=== PATIENT | female | born 1975 | race Caucasian/White ===

== ENCOUNTER 2021-06-25 04:15 | Day surgery (SDC) | payer BC ==
[2021-06-24 12:46] VITALS: BMI 29.0
[2021-06-25] MEDS ORDERED: PROPOFOL 20 ML ONE (14:00)
[2021-06-25] MEDS ORDERED: MIDAZOLAM HCL 2 MG/2 ML SINGLE DOSE VIAL ONE (14:00)
[2021-06-25] MEDS ORDERED: metroNIDAZOLE 0.75% VAGINAL GEL 70 GM TUBE ONE (14:28)
[2021-06-25] MEDS ORDERED: IODINE/POTASSIUM IODIDE 5%/10% 14 ML BOTTLE NR ONE (14:38)
[2021-06-25] MEDS ORDERED: FERRIC SUBSULFATE 500 ML BOTTLE TP ONE (14:44)
[2021-06-25] MEDS ORDERED: metroNIDAZOLE 0.75% TOPICAL GEL 45 GM TUBE TP ONE (14:45)
[2021-06-25] MEDS ORDERED: ACETAMINOPHEN 325 MG TABLET (FP) PO PRN (15:17)
[2021-06-25] MEDS ORDERED: oxyCODONE HCL 5 MG TABLET PO PRN ×2 (15:17→15:22)
[2021-06-25] MEDS ORDERED: ONDANSETRON 4 MG/2 ML VIAL IVPUSH PRN ×2 (15:17→15:22)
[2021-06-25] MEDS ORDERED: IBUPROFEN 600 MG TABLET (FP) PO PRN (15:22)
[2021-06-25] MEDS ORDERED: IBUPROFEN 800 MG/8 ML IJ IVPB PRN (15:22)
[2021-06-25] MEDS ORDERED: ELECTROLYTE-148 SOLN 1,000 ML IV SCH (15:30)
[2021-06-25] MEDS ORDERED: LACTATED RINGERS SOLUTION 1,000 ML IV SCH (15:30)
[2021-06-25 15:53] VITALS: BP 127/65
[2021-06-25 17:37] VITALS: PULSE 85; TEMP 97.8
== END 2021-06-25 16:56 | disposition home or self-care (01) ==
LOC: JASU-SURG 04:15
PROVIDERS: ATTEND Obstetrics & Gynecology
PROC: 0UBC7ZX Excision of Cervix, Via Natural or Artificial Opening, Diagnostic (ICD-10-PCS; principal; 2021-06-25 14:00)
DX: R87.613 High grade squamous intraepithelial lesion on cytologic smear of cervix (HGSIL) (principal)
CPT/HCPCS: 82962; 94760

== ENCOUNTER 2023-01-09 14:45 | Day surgery (SDC) | payer BC ==
[2023-01-09] MEDS ORDERED: FERRIC CARBOXYMALTOSE 750 MG in SODIUM CHLORIDE 250 ML IVPB ONE (15:30)
[2023-01-09 15:35] VITALS: RESP 18; TEMP 98.7
[2023-01-09 16:30] VITALS: BP 116/70; PULSE 82
== END 2023-01-09 17:00 | disposition home or self-care (01) ==
LOC: FINFUSION 14:45 → FM/S 14:55 → FINFUSION 17:00
PROVIDERS: ATTEND Family Medicine
PROC: 3E033GC Introduction of Other Therapeutic Substance into Peripheral Vein, Percutaneous Approach (ICD-10-PCS; principal; 2023-01-09)
DX: D50.9 Iron deficiency anemia, unspecified (principal); E61.1 Iron deficiency
CPT/HCPCS: 81025; 96365; J1439

== ENCOUNTER 2023-01-30 14:03 | Day surgery (SDC) | payer BC ==
[2023-01-30] MEDS ORDERED: FERRIC CARBOXYMALTOSE 750 MG in SODIUM CHLORIDE 250 ML IVPB ONE (14:30)
[2023-01-30 15:25] VITALS: BP 134/72; PULSE 72; RESP 18; TEMP 97.6
== END 2023-01-30 15:28 | disposition home or self-care (01) ==
LOC: FINFUSION 14:03 → FM/S 14:03 → FINFUSION 15:28
PROVIDERS: ATTEND Family Medicine
PROC: 3E033GC Introduction of Other Therapeutic Substance into Peripheral Vein, Percutaneous Approach (ICD-10-PCS; principal; 2023-01-30)
DX: D50.9 Iron deficiency anemia, unspecified (principal)
CPT/HCPCS: 96365; J1439

== ENCOUNTER 2024-03-28 11:42 | Inpatient (IN) | payer BC ==
[2024-03-28 11:48] VITALS: BMI 31.2
[2024-03-28] MEDS ORDERED: ACETAMINOPHEN INJECTION 100 ML ONE ×3 (13:22→21:11)
[2024-03-28] MEDS: SODIUM CHLORIDE 0.9% 500 ML INFUS.BAG IV ONE (13:27)
[2024-03-28] MEDS: ACETAMINOPHEN 1000 MG/100 ML BAG IVPB ONE ×2 (13:27→21:16)
[2024-03-28 13:34] LABS: HEMATOCRIT 34.5 % (32.4-45.2); HEMOGLOBIN 11.1 GM/dL (10.7-15.3); MCHC 32.3 g/dl (32.0-36.0); MEAN CELL VOLUME 74.3 fl (80-96); MEAN PLT VOLUME 7.2 fl (7.5-11.1); PLATELET COUNT 390 10^3/uL (134-434); RBC 4.64 M/mm3 (3.60-5.2); WHITE BLOOD COUNT 16.5 K/mm3 (4.0-10.0)
[2024-03-28 13:36] LABS: EPI CELLS 18 /uL (0-25.1); HYALINE CASTS 8 /uL (0-3.1); URINE APPEARANCE CLOUDY; URINE BACTERIA 2312 /uL (0-1359); URINE BILIRUBIN NEGATIVE (NEGATIVE); URINE COLOR YELLOW; URINE GLUCOSE (UA) NEGATIVE (NEGATIVE); URINE KETONE NEGATIVE (NEGATIVE); URINE LEUK ESTERASE 2+ (NEGATIVE); URINE NITRITE POSITIVE (NEGATIVE); URINE PROTEIN 1+ (NEGATIVE); URINE RBC 225 /uL (0-23.9); URINE WBC 976 /uL (0-25.8)
[2024-03-28 13:52] LABS: ANISOCYTOSIS 0; HCG,QUALITATIVE URINE NEGATIVE; MACROCYTOSIS 0
[2024-03-28 14:02] LABS: POTASSIUM 3.4 mmol/L (3.5-5.1)
[2024-03-28 14:04] LABS: ALBUMIN 3.5 g/dl (3.4-5.0); BLOOD UREA NITROGEN 7.3 mg/dL (7-18)
[2024-03-28 14:07] LABS: CREATININE 0.7 mg/dL (0.55-1.3)
[2024-03-28 14:08] LABS: BILIRUBIN,TOTAL 1.1 mg/dL (0.2-1)
[2024-03-28 14:09] LABS: TOT PROT 8.1 g/dl (6.4-8.2)
[2024-03-28] MEDS ORDERED: CEFTRIAXONE 1 GM/50 ML BAG ONE (14:54)
[2024-03-28] MEDS: CEFTRIAXONE 1,000 MG in DEXTROSE 5%-WATER - 50 ML IVPB ONE (15:06)
[2024-03-28] MEDS ORDERED: SODIUM CHLORIDE 0.9% 500 ML INFUS.BAG IV ONE ×2 (16:32→21:01)
[2024-03-28] MEDS ORDERED: TAMSULOSIN HCL 0.4 MG CAP ONE (16:38)
[2024-03-28] MEDS ORDERED: KETOROLAC TROMETHAMINE 30 MG/1 ML VIAL ONE ×2 (16:39→20:00)
[2024-03-28] MEDS: TAMSULOSIN HCL 0.4 MG CAP PO ONE (16:49)
[2024-03-28] MEDS: KETOROLAC TROMETHAMINE 30 MG/1 ML VIAL IVPUSH ONE (16:49)
[2024-03-28 17:17] LABS: HIV INTERPRETATION NEGATIVE (NEGATIVE)
[2024-03-28] MEDS ORDERED: ACETAMINOPHEN 1000 MG/100 ML BAG IVPB ONE ×2 (17:47→21:01)
[2024-03-28] MEDS ORDERED: LIDOCAINE HCL/PF 2% SDV 5ML VIAL ONE (19:40)
[2024-03-28] MEDS ORDERED: PROPOFOL 20 ML ONE (19:40)
[2024-03-28] MEDS ORDERED: MIDAZOLAM HCL 2 MG/2 ML SINGLE DOSE VIAL ONE (19:40)
[2024-03-28] MEDS ORDERED: GENTAMICIN SO4 80 MG/2 ML VIAL ONE (19:45)
[2024-03-28] MEDS: GENTAMICIN SO4 80 MG/2 ML VIAL IVPB ONE (19:58)
[2024-03-28] MEDS ORDERED: DEXAMETHASONE SOD PHOSPHATE 4 MG/1 ML VIAL ONE (20:00)
[2024-03-28] MEDS ORDERED: ONDANSETRON 4 MG/2 ML VIAL ONE (20:00)
[2024-03-28] MEDS ORDERED: PROMETHAZINE HCL 25 MG/1 ML VIAL IVPB PRN (20:19)
[2024-03-28] MEDS ORDERED: ONDANSETRON 4 MG/2 ML VIAL IVPUSH PRN (20:19)
[2024-03-28] MEDS: LACTATED RINGERS SOLUTION 1,000 ML IV SCH (20:48)
[2024-03-28] MEDS: ACETAMINOPHEN 500 MG TABLET (FP) PO PRN (23:19)
[2024-03-28] MEDS: KCL 10 MEQ IVPB 10 MEQ/100 ML INFUS.BAG IVPB SCH (23:19)
[2024-03-29] MEDS: PIPERACILLIN/TAZOB 3.375 GM 3.375 GM in DEXTROSE 5%-WATER - 50 ML IVPB SCH
[2024-03-29] MEDS: INSULIN (LEVEMIR) 100 UNITS/ML UNITS SQ SCH (06:57)
[2024-03-29] MEDS: INSULIN ASPART SLIDING SCALE (NOVOLOG) 1 VIAL SQ SCH (06:58)
[2024-03-29] MEDS ORDERED: CEFTRIAXONE 1 GM in DEXTROSE 5%-WATER - 50 ML IVPB SCH (08:00)
[2024-03-29 08:38] LABS: HEMATOCRIT 29.9 % (32.4-45.2); HEMOGLOBIN 9.4 GM/dL (10.7-15.3); MCH 23.8 pg (25.7-33.7); MCHC 31.6 g/dl (32.0-36.0); MEAN CELL VOLUME 75.4 fl (80-96); MEAN PLT VOLUME 7.8 fl (7.5-11.1); PLATELET COUNT 272 10^3/uL (134-434); RBC 3.96 M/mm3 (3.60-5.2); RDW 15.9 % (11.6-15.6); WHITE BLOOD COUNT 17.2 K/mm3 (4.0-10.0)
[2024-03-29 09:03] LABS: POTASSIUM 3.5 mmol/L (3.5-5.1)
[2024-03-29 09:04] LABS: ALBUMIN 2.7 g/dl (3.4-5.0); BLOOD UREA NITROGEN 14.3 mg/dL (7-18); CALCIUM 8.6 mg/dL (8.5-10.1)
[2024-03-29 09:07] LABS: CREATININE 0.8 mg/dL (0.55-1.3)
[2024-03-29 09:08] LABS: PHOSPHOROUS 2.5 mg/dL (2.5-4.9)
[2024-03-29 09:09] LABS: TOT PROT 6.4 g/dl (6.4-8.2)
[2024-03-29 09:11] LABS: ANISOCYTOSIS 0; MACROCYTOSIS 0
[2024-03-29] MEDS: ENOXAPARIN NA (PORCINE) 40 MG/0.4 ML DISP.SYRIN SQ SCH (10:07)
[2024-03-29] MEDS: BISACODYL 10 MG SUPP.RECT PR ONE (16:39)
[2024-03-29] MEDS: MEROPENEM 1 GM in DEXTROSE 5%-WATER 100 ML IVPB SCH (16:44)
[2024-03-29] MEDS: LACTATED RINGERS SOLUTION 1,000 ML IV SCH (17:00)
[2024-03-30] MEDS: PIPERACILLIN/TAZOB 3.375 GM 3.375 GM in DEXTROSE 5%-WATER - 50 ML IVPB SCH (04:03)
[2024-03-30 12:33] LABS: BASO % 0.4 % (0-2.0); EOS % 0.1 % (0-4.5); HEMATOCRIT 28.4 % (32.4-45.2); HEMOGLOBIN 9.1 GM/dL (10.7-15.3); LYMPH % 6.3 % (8-40); MCH 23.6 pg (25.7-33.7); MCHC 31.9 g/dl (32.0-36.0); MEAN CELL VOLUME 73.9 fl (80-96); MEAN PLT VOLUME 7.6 fl (7.5-11.1); NEUT % 88.2 % (42.8-82.8); PLATELET COUNT 240 10^3/uL (134-434); RBC 3.84 M/mm3 (3.60-5.2); RDW 16.4 % (11.6-15.6)
[2024-03-30 12:58] LABS: POTASSIUM 3.3 mmol/L (3.5-5.1)
[2024-03-30 13:01] LABS: CALCIUM 8.6 mg/dL (8.5-10.1)
[2024-03-30 13:02] LABS: ALBUMIN 2.6 g/dl (3.4-5.0)
[2024-03-30 13:05] LABS: CREATININE 0.6 mg/dL (0.55-1.3)
[2024-03-30 13:07] LABS: TOT PROT 6.1 g/dl (6.4-8.2)
[2024-03-30] MEDS: POTASSIUM CHLORIDE ORAL LIQUID 20 MEQ/15 ML PO ONE (16:12)
[2024-03-30] MEDS: CEFAZOLIN SODIUM 2 GM in DEXTROSE 5%-WATER 100 ML IVPB SCH (18:04)
[2024-03-31 09:47] LABS: BASO % 0.4 % (0-2.0); EOS % 0.6 % (0-4.5); HEMOGLOBIN 9.3 GM/dL (10.7-15.3); LYMPH % 13.7 % (8-40); MCH 23.6 pg (25.7-33.7); MCHC 32.1 g/dl (32.0-36.0); MEAN CELL VOLUME 73.7 fl (80-96); MEAN PLT VOLUME 7.6 fl (7.5-11.1); MONO % 6.2 % (3.8-10.2); NEUT % 79.1 % (42.8-82.8); PLATELET COUNT 213 10^3/uL (134-434); RBC 3.93 M/mm3 (3.60-5.2); RDW 16.5 % (11.6-15.6); WHITE BLOOD COUNT 10.1 K/mm3 (4.0-10.0)
[2024-03-31 10:37] LABS: ALBUMIN 2.4 g/dl (3.4-5.0); BILIRUBIN,TOTAL 0.9 mg/dL (0.2-1); BLOOD UREA NITROGEN 3.9 mg/dL (7-18); CALCIUM 8.3 mg/dL (8.5-10.1); CREATININE 0.4 mg/dL (0.55-1.3); POTASSIUM 3.3 mmol/L (3.5-5.1)
[2024-04-01 08:39] LABS: BASO % 0.7 % (0-2.0); EOS % 2.1 % (0-4.5); HEMATOCRIT 29.9 % (32.4-45.2); HEMOGLOBIN 9.7 GM/dL (10.7-15.3); LYMPH % 20.5 % (8-40); MCH 24.2 pg (25.7-33.7); MCHC 32.5 g/dl (32.0-36.0); MEAN CELL VOLUME 74.5 fl (80-96); MEAN PLT VOLUME 8.2 fl (7.5-11.1); MONO % 9.5 % (3.8-10.2); NEUT % 67.2 % (42.8-82.8); PLATELET COUNT 257 10^3/uL (134-434); RBC 4.01 M/mm3 (3.60-5.2); RDW 15.8 % (11.6-15.6); WHITE BLOOD COUNT 8.7 K/mm3 (4.0-10.0)
[2024-04-01 09:06] LABS: POTASSIUM 3.5 mmol/L (3.5-5.1)
[2024-04-01 09:13] LABS: ALBUMIN 2.5 g/dl (3.4-5.0); BLOOD UREA NITROGEN 5.5 mg/dL (7-18); CALCIUM 8.4 mg/dL (8.5-10.1)
[2024-04-01 09:15] LABS: BILIRUBIN,TOTAL 0.7 mg/dL (0.2-1); TOT PROT 6.4 g/dl (6.4-8.2)
[2024-04-01 09:16] LABS: CREATININE 0.4 mg/dL (0.55-1.3)
[2024-04-01] MEDS: POLYETHYLENE GLYCOL (HEALTHYLAX) 3350 17 GM PACKET PO SCH (15:40)
[2024-04-01 20:30] VITALS: RESP 18
[2024-04-02] MEDS ORDERED: BISACODYL 5 MG TABLET.DR (FP) PO PRN (07:18)
[2024-04-02 10:16] LABS: HEMATOCRIT 30.2 % (32.4-45.2); MCH 24.3 pg (25.7-33.7); MCHC 33.2 g/dl (32.0-36.0); MEAN CELL VOLUME 73.3 fl (80-96); PLATELET COUNT 352 10^3/uL (134-434); RBC 4.12 M/mm3 (3.60-5.2); RDW 15.8 % (11.6-15.6); WHITE BLOOD COUNT 8.1 K/mm3 (4.0-10.0)
[2024-04-02 10:26] LABS: CALCIUM 8.8 mg/dL (8.5-10.1)
[2024-04-02 10:27] LABS: ALBUMIN 2.6 g/dl (3.4-5.0); BLOOD UREA NITROGEN 7.2 mg/dL (7-18)
[2024-04-02 10:30] LABS: CREATININE 0.5 mg/dL (0.55-1.3)
[2024-04-02 10:32] LABS: BILIRUBIN,TOTAL 0.5 mg/dL (0.2-1); TOT PROT 6.4 g/dl (6.4-8.2)
[2024-04-02 11:17] LABS: ANISOCYTOSIS 0; HELMET CELLS 0; HOWELL-JOLLY BODIES 0; MACROCYTOSIS 0; OVALOCYTE 0; ROULEAU 0; SICKELED CELLS 0; TARGET CELLS 0; TEAR DROP CELLS 0; TOXIC GRANULATION 0
[2024-04-02] MEDS: IRON SUCROSE INJECTION 200 MG in SODIUM CHLORIDE 100 ML IVPB ONE (11:17)
[2024-04-02 11:18] LABS: PLATELET ESTIMATE ADEQUATE
[2024-04-02] MEDS: ONDANSETRON *ODT* 4 MG TABLET SL PRN (14:01)
[2024-04-03 08:46] LABS: HEMATOCRIT 32.5 % (32.4-45.2); HEMOGLOBIN 10.4 GM/dL (10.7-15.3); MCH 23.7 pg (25.7-33.7); MCHC 32.1 g/dl (32.0-36.0); MEAN CELL VOLUME 73.8 fl (80-96); MEAN PLT VOLUME 7.8 fl (7.5-11.1); PLATELET COUNT 437 10^3/uL (134-434); WHITE BLOOD COUNT 13.9 K/mm3 (4.0-10.0)
[2024-04-03 09:08] LABS: POTASSIUM 4.4 mmol/L (3.5-5.1)
[2024-04-03 09:12] VITALS: BP 135/74; PULSE 64; TEMP 99.3
[2024-04-03 09:19] LABS: ALBUMIN 2.8 g/dl (3.4-5.0); BLOOD UREA NITROGEN 6.3 mg/dL (7-18); CALCIUM 8.9 mg/dL (8.5-10.1)
[2024-04-03 09:23] LABS: CREATININE 0.4 mg/dL (0.55-1.3)
[2024-04-03] MEDS: IRON SUCROSE INJECTION 200 MG in SODIUM CHLORIDE 100 ML IVPB ONE (09:24)
[2024-04-03 09:25] LABS: BILIRUBIN,TOTAL 0.5 mg/dL (0.2-1)
== END 2024-04-03 16:15 | disposition home or self-care (01) | DRG 661 ==
LOC: JER 11:42 → JERBED 17:33 → J6S 18:34
PROVIDERS: ADMIT Internal Medicine; ATTEND Family Medicine
PROC: 0T778DZ Dilation of Left Ureter with Intraluminal Device, Via Natural or Artificial Opening Endoscopic (ICD-10-PCS; principal; 2024-03-28 19:00)
DX: N13.6 Pyonephrosis (principal); N10 Acute pyelonephritis; B96.20 Unspecified Escherichia coli [E. coli] as the cause of diseases classified elsewhere; I10 Essential (primary) hypertension; E78.5 Hyperlipidemia, unspecified; E11.9 Type 2 diabetes mellitus without complications; N28.1 Cyst of kidney, acquired; R50.9 Fever, unspecified; D72.829 Elevated white blood cell count, unspecified; N15.1 Renal and perinephric abscess; D50.9 Iron deficiency anemia, unspecified; R11.0 Nausea; G43.909 Migraine, unspecified, not intractable, without status migrainosus; G25.81 Restless legs syndrome
CPT/HCPCS: 36415; 71045-TC-FY; 74177-TC; 76000-TC-FY; 76775-TC; 80053; 81003; 82272; 82607; 82728; 82962; 82977; 83540; 83550; 83605; 83735; 84100; 84466; 84703; 85025; 85027; 86803; 87040; 87086; 87186; 87389; 94760; 97116-GP; 97162-GP; 99285-25; C2617; J0131; J1756; Q0162; Q9967